=== PATIENT | female | born 2000 | race Two or more races ===

== ENCOUNTER → 2025-03-24 | Outpatient (CLI) | payer OTHER | END | disposition home or self-care (01) | LOC: RAD 16:17 | PROVIDERS: ATTEND Specialist | DX: J34.89 Other specified disorders of nose and nasal sinuses (principal); J01.31 Acute recurrent sphenoidal sinusitis; J34.2 Deviated nasal septum; R07.9 Chest pain, unspecified; R05.9 Cough, unspecified ==